=== PATIENT | female | born 1970 | race Caucasian/White ===

== ENCOUNTER 2016-09-15 19:04 | Emergency (ER) | payer OTHER ==
--- NOTE | 2016-09-15 20:06 | ED ORDER SUMMARY ---
..... Patient: BETSY BRANDT OrderSheet [facility] VisitID: [id number] [address] [place] [address] 46y, F Registration Date/Time: 09/15/2016 ORDER SHEET Weight: 65.7 kg (stated) Allergies: Remicade GENERAL ORDERS: Culture, Strep Screen Urgent (19:37 09/15/2016 Christin Ceron.NAb per protocol) ([facility] 19:41 Martin) (19:47 Christin Ceron.Angela) MEDICATION ORDERS: IV FLUIDS: ORDER SHEET NOTES: [Electronically signed by Farhan Eden R.N. (20:22 09/15/2016)] [Electronically signed by Kathleen Slater (21:44 09/15/2016)] [Electronically locked/signed by Farhan Eden R.N. (20:22 09/15/2016)]
--- NOTE | 2016-09-15 20:06 | ED ORDER SUMMARY ---
..... Patient: BETSY BRANDT OrderSheet [facility] VisitID: [id number] [address] [place] [address] 46y, F Registration Date/Time: 09/15/2016 ORDER SHEET Weight: 65.7 kg (stated) Allergies: Remicade GENERAL ORDERS: Culture, Strep Screen Urgent (19:37 09/15/2016 Christin Ceron.NAb per protocol) ([facility] 19:41 Martin) (19:47 Christin Ceron.Angela) MEDICATION ORDERS: IV FLUIDS: ORDER SHEET NOTES: [Electronically signed by Farhan Eden R.N. (20:22 09/15/2016)] [Electronically signed by Kathleen Slater (21:44 09/15/2016)] [Electronically locked/signed by Farhan Eden R.N. (20:22 09/15/2016)]
--- NOTE | 2016-09-15 20:06 | ED CLINICAL REPORT ---
Clinical Report - Physicians/Mid Levels [facility] [address] [place] [address] 09/15/2016 19:05 Patient: BETSY BRANDT Time Seen: 19:30; initial patient contact, initial documentation, patient care assumed. Arrived- By private vehicle. Historian- patient. HISTORY OF PRESENT ILLNESS Chief Complaint: SORE THROAT. This started about 1 1/2 weeks ago and is still present. Pain described as moderate. The patient has had a sore throat. No mouth sores, nasal discharge or congestion, ear pain or toothache. (son had strep). Similar symptoms previously: None. Recent medical care: Not recently seen/assessed. REVIEW OF SYSTEMS The patient has had a subjective fever with chills and sweating. No cough, difficulty breathing or chest pain. All systems otherwise negative, except as recorded above. PAST HISTORY See nurses notes. PROBLEMS: Viral Disease. Myalgias. Radius Fracture. Ankylosing Spondylitis. Gastroenteritis. Crohn's Disease. Fibromyalgia. --19:32 Farhan Eden RAbN. ADDITIONAL SURGERIES: 20 inch of large intestine removed in 1985. Appendectomy. Breast reduction. Cholecystectomy. Tonsillectomy. --19:32 Farhan Eden R.N. SOCIAL HISTORY Heavy tobacco smoker. History of heavy drug use: marijuana. No alcohol use. No recent travel. Is a local resident. FAMILY HISTORY Negative. ADDITIONAL NOTES The nursing notes have been reviewed with agreement regarding the chief complaint, HPI, ROS, PMH and patient medications and allergies. PHYSICAL EXAM Vital Signs: 09/15/2016 19:28 BP: 133/82. HR: 92. RR: 12. O2 saturation: 96%. Temp: 98.2 F. Pain level now: 8/10. Have been reviewed as normal and appear to be correct. Appearance: Alert. No acute distress. Head: Normal external inspection. Eyes: Pupils equal, round and reactive to light. Conjunctivae and eyelids normal. ENT: Ears normal. Nose normal. Pharynx abnormal. Mild generalized pharyngeal erythema. No pharyngeal vesicles or ulcerations. No right tonsillar exudate, right tonsillar swelling, left tonsillar exudate, left tonsillar abscess, left tonsillar swelling or left peritonsillitis. Lips normal. Gums normal. No trismus present. Uvula midline. Neck: Lymphadenopathy. Normal inspection. Mild right anterior neck and mild left anterior neck lymphadenopathy present. Trachea midline. Thyroid normal. Neck supple. Respiratory: No respiratory distress. Skin: Normal skin color. No rash. Normal skin turgor. Extremities: Extremities exhibit normal ROM. Extremities nontender. Neuro: Oriented X 3. No motor deficit. No sensory deficit. PROGRESS AND PROCEDURES Course of Care: 19:42 09/15/16. pt has ashely for narcs, methadone and ativan, last rx 09/02, see report for full details. Patient counseled in person regarding the patient's stable condition and diagnosis. Differential Diagnosis: Other possible considerations: pharyngitis, herpes, mono. Above considerations are based on history and physical exam. Differential diagnosis was discussed with patient. Disposition: Discharged home in good and unchanged condition (20:06). Condition: good and stable. CLINICAL IMPRESSION Acute streptococcal pharyngitis INSTRUCTIONS Warnings: GENERAL WARNINGS: Return or contact your physician immediately if your condition worsens or changes unexpectedly, if not improving as expected, or if other problems arise. Specifically return if problem worsens. Prescription Medications: Amoxicillin 500 mg tablets: Take 1 orally every 8 hours for 10 days. Dispense thirty (30). No refills. Follow-up: Follow up with your doctor in about five days even if well. Call for an appointment. Summary of care provided to patient. Understanding of the discharge instructions verbalized by patient. (Electronically signed by Kathleen Slater A.R.N.P. 09/15/2016 21:44)
--- NOTE | 2016-09-15 20:06 | ED NURSING NOTES ---
Clinical Report - Nurses [facility] [address] [place] [address] 09/15/2016 19:05 Patient: BETSY BRANDT TRIAGE Triage time 19:28. Acuity: LEVEL 4. Chief Complaint: SORE THROAT and CHILLS and SWEATS (RICHARDSON). 19:33. Alert. --19:33 Farhan Eden R.N. 19:28 09/15/16. BP: 133/82. HR: 92. RR: 12. O2 saturation: 96% on room air. Temp: 98.2 F (oral). Pain level now: 01/24. --19:33 Farhan Eden R.N. Weight: 65.7 kg stated. Height/Length: 63 inches Per Patient. BMI: 25.7. --19:32 Farhan Eden R.N. Medications TraZODone HCl Oral 50 mg, daily. --19:30 Farhan Eden R.N. OPAL, every other week. Methadone HCl Oral (Tablet 10 mg) 1 tablet, daily. --19:31 Farhan Eden R.N. AzaTHIOprine Oral (pt unsure of dose ). Gabapentin Oral 600, daily. --19:31 Farhan Eden R.N. Allergies Remicade. --19:30 Farhan Eden R.N. History Arrived by private vehicle. Historian: patient. Accompanied by family. Primary physician (Calderon). Onset. (1 1/2 weeks ago). Treatment FINE WIRE DRAWER: None. PAST MEDICAL HX: Immunizations: up-to-date. SOCIAL HX: Current every day heavy tobacco smoker- less than 1 pack per day. History of drug use: marijuana. (daily). No alcohol use. No infectious disease exposure. ABUSE ASSESSMENT: No report of abuse. FALL RISK ASSESSMENT: Fall risk assessment completed. No fall risk identified. NUTRITIONAL RISK ASSESSMENT: The nutritional risk assessment revealed no deficiencies. FUNCTIONAL ASSESSMENT: Functional assessment: no impairments noted. LEARNING NEEDS ASSESSMENT: The learning needs assessment revealed no barriers. SKIN INTEGRITY ASSESSMENT: Skin integrity risk assessment completed. No skin integrity risk identified. --19:33 Farhan Eden R.N. PROBLEMS: Viral Disease. Myalgias. Radius Fracture. Ankylosing Spondylitis. Gastroenteritis. Crohn's Disease. Fibromyalgia. --19:32 Farhan Eden R.N. ADDITIONAL SURGERIES: 20 inch of large intestine removed in 1985. Appendectomy. Breast reduction. Cholecystectomy. Tonsillectomy. --19:32 Farhan Eden R.N. Interventions ID band on patient. To treatment room. --19:33 Farhan Eden R.N. PHYSICAL ASSESSMENT 19:33. Ambulatory to room. GENERAL / NEURO / PSYCH: Alert. Oriented X 4. HEENT: Voice within normal limits. Mucous membranes are pink. RESPIRATORY: Respirations not labored. SKIN: Skin is warm and dry. Normal skin turgor. --19:33 Farhan Eden R.N. NURSING PROGRESS NOTES 19:33. Head of bed elevated. Two patient identifiers checked. Call light placed in reach. Bed placed in lowest position. Brakes of bed on. Patient ready for evaluation- chart flagged. --19:33 Farhan Eden R.N. 19:36. Patient ID band checked for patient name and birthdate: patient confirmed. Throat swab obtained for rapid strep; labeled in the presence of the patient and sent to lab. --19:36 Farhan Eden R.N. 19:59 Lab called and reported result of rapid strep, Positive for Strep A. --20:00 Farhan Eden R.N. 20:18. The patient is calm and resting quietly. GENERAL / NEURO / PSYCH: Alert. Oriented X 4. RESPIRATORY: No respiratory distress. SKIN: Skin is warm and dry. --20:22 Farhan Eden R.N. DISPOSITION / DISCHARGE Departure time: 20:22. Condition at departure: stable. No learning barriers present. Discharge instructions provided and reviewed with the patient. Reviewed medication(s) side effects, precautions, dosing and course information. Prescription(s) given to the patient. Patient verbalized understanding. Written instructions provided in Peruvian. The patient was discharged home and accompanied by family. She left the Emergency Department ambulatory and via private vehicle. Family member driving. FALL RISK ASSESSMENT: Fall risk assessment completed. No fall risk identified. --20:22 Farhan Eden R.N. 20:18 09/15/16. BP: 121/80. HR: 70. RR: 15. O2 saturation: 98%. Pain level now: 12/24. --20:22 Farhan Eden R.N. Locked/Released at 09/15/2016 20:22 by Farhan Eden R.N.
--- NOTE | 2016-09-15 20:06 | ED NURSING NOTES ---
Clinical Report - Nurses [facility] [address] [place] [address] 09/15/2016 19:05 Patient: BETSY BRANDT TRIAGE Triage time 19:28. Acuity: LEVEL 4. Chief Complaint: SORE THROAT and CHILLS and SWEATS (RICHARDSON). 19:33. Alert. --19:33 Farhan Eden R.N. 19:28 09/15/16. BP: 133/82. HR: 92. RR: 12. O2 saturation: 96% on room air. Temp: 98.2 F (oral). Pain level now: 01/24. --19:33 Farhan Eden R.N. Weight: 65.7 kg stated. Height/Length: 63 inches Per Patient. BMI: 25.7. --19:32 Farhan Eden R.N. Medications TraZODone HCl Oral 50 mg, daily. --19:30 Farhan Eden R.N. OPAL, every other week. Methadone HCl Oral (Tablet 10 mg) 1 tablet, daily. --19:31 Farhan Eden R.N. AzaTHIOprine Oral (pt unsure of dose ). Gabapentin Oral 600, daily. --19:31 Farhan Eden R.N. Allergies Remicade. --19:30 Farhan Eden R.N. History Arrived by private vehicle. Historian: patient. Accompanied by family. Primary physician (Calderon). Onset. (1 1/2 weeks ago). Treatment YARN TWISTER: None. PAST MEDICAL HX: Immunizations: up-to-date. SOCIAL HX: Current every day heavy tobacco smoker- less than 1 pack per day. History of drug use: marijuana. (daily). No alcohol use. No infectious disease exposure. ABUSE ASSESSMENT: No report of abuse. FALL RISK ASSESSMENT: Fall risk assessment completed. No fall risk identified. NUTRITIONAL RISK ASSESSMENT: The nutritional risk assessment revealed no deficiencies. FUNCTIONAL ASSESSMENT: Functional assessment: no impairments noted. LEARNING NEEDS ASSESSMENT: The learning needs assessment revealed no barriers. SKIN INTEGRITY ASSESSMENT: Skin integrity risk assessment completed. No skin integrity risk identified. --19:33 Farhan Eden R.N. PROBLEMS: Viral Disease. Myalgias. Radius Fracture. Ankylosing Spondylitis. Gastroenteritis. Crohn's Disease. Fibromyalgia. --19:32 Farhan Eden R.N. ADDITIONAL SURGERIES: 20 inch of large intestine removed in 1985. Appendectomy. Breast reduction. Cholecystectomy. Tonsillectomy. --19:32 Farhan Eden R.N. Interventions ID band on patient. To treatment room. --19:33 Farhan Eden R.N. PHYSICAL ASSESSMENT 19:33. Ambulatory to room. GENERAL / NEURO / PSYCH: Alert. Oriented X 4. HEENT: Voice within normal limits. Mucous membranes are pink. RESPIRATORY: Respirations not labored. SKIN: Skin is warm and dry. Normal skin turgor. --19:33 Farhan Eden R.N. NURSING PROGRESS NOTES 19:33. Head of bed elevated. Two patient identifiers checked. Call light placed in reach. Bed placed in lowest position. Brakes of bed on. Patient ready for evaluation- chart flagged. --19:33 Farhan Eden R.N. 19:36. Patient ID band checked for patient name and birthdate: patient confirmed. Throat swab obtained for rapid strep; labeled in the presence of the patient and sent to lab. --19:36 Farhan Eden R.N. 19:59 Lab called and reported result of rapid strep, Positive for Strep A. --20:00 Farhan Eden R.N. 20:18. The patient is calm and resting quietly. GENERAL / NEURO / PSYCH: Alert. Oriented X 4. RESPIRATORY: No respiratory distress. SKIN: Skin is warm and dry. --20:22 Farhan Eden R.N. DISPOSITION / DISCHARGE Departure time: 20:22. Condition at departure: stable. No learning barriers present. Discharge instructions provided and reviewed with the patient. Reviewed medication(s) side effects, precautions, dosing and course information. Prescription(s) given to the patient. Patient verbalized understanding. Written instructions provided in Latvian. The patient was discharged home and accompanied by family. She left the Emergency Department ambulatory and via private vehicle. Family member driving. FALL RISK ASSESSMENT: Fall risk assessment completed. No fall risk identified. --20:22 Farhan Eden R.N. 20:18 09/15/16. BP: 121/80. HR: 70. RR: 15. O2 saturation: 98%. Pain level now: 12/24. --20:22 Farhan Eden R.N. Locked/Released at 09/15/2016 20:22 by Farhan Eden R.N.
--- NOTE | 2016-09-15 21:44 | ED MED RECONCILIATION SUMMARY ---
Patient: BETSY BRANDT Medication Reconciliation Report [facility] VisitID: [id number] [address] [place] [address] 46y, F Registration Date/Time: 09/15/2016 Weight: 65.7 kg Height/Length: 63 in. BMI: 25.7 ALLERGIES: Remicade The patient's Home Medications are listed below: THE FOLLOWING MEDICATIONS NEED TO BE RECONCILED: AzaTHIOprine Oral, pt unsure of dose Gabapentin Oral 600, daily OPAL, every other week Methadone HCl Oral (10 mg) 1 tablet, daily TraZODone HCl Oral 50 mg, daily The source(s) of the original Home Medication information: Not obtained. The following Medications were given to the patient in the Emergency Department: None. The following Medications were prescribed to the patient: Amoxicillin 500 mg tablets: Take 1 orally every 8 hours for 10 days. Dispense thirty (30). No refills. -- Kathleen Slater A.R.N.P.
--- NOTE | 2016-09-15 21:44 | ED MAR SUMMARY ---
..... Medication Administration Record [facility] [address], [place] [id number] Patient: BETSY BRANDT Visit ID: [id number] 46y, F Weight: 65.7 kg Height/Length: 63 in BMI: 25.7 ALLERGIES: Remicade
--- NOTE | 2016-09-15 21:44 | ED DISCHARGE INSTRUCTIONS ---
Patient: BETSY BRANDT General Instructions [facility] VisitID: [id number] [place] [address] 46y, F Registration Date/Time: 09/15/2016 Acute streptococcal pharyngitis INSTRUCTIONS Warnings: GENERAL WARNINGS: Return or contact your physician immediately if your condition worsens or changes unexpectedly, if not improving as expected, or if other problems arise. Specifically return if problem worsens. Prescription Medications: Amoxicillin 500 mg tablets: Take 1 orally every 8 hours for 10 days. Dispense thirty (30). No refills. Follow-up: Follow up with your doctor in about five days even if well. Call for an appointment. Summary of care provided to patient. Understanding of the discharge instructions verbalized by patient. ADDITIONAL INFORMATION Pharyngitis: Strep [Presumed] Your illness has the signs of a strep throat infection. Strep throat is a contagious illness. It is spread by coughing, kissing or by touching others after touching your mouth or nose. Symptoms include throat pain worse with swallowing, aching all over, headache and fever. You will be treated with an antibiotic, which should make you start to feel better within 1-2 days. Home Care: Rest at home and drink plenty of fluids to avoid dehydration. No school or work for the first two days on antibiotics. You will not be contagious after this time, and if you are feeling better, you can return to school or work. Take your antibiotics for a full 10 days, even if you feel better after the first few days of treatment. This is very important to prevent complications from the strep infection (such as heart or kidney disease). Children: Use acetaminophen (Tylenol) for fever, fussiness or discomfort. In infants over six months of age, you may use ibuprofen (Children's Motrin) instead of Tylenol. [NOTE: If your child has chronic liver or kidney disease or ever had a stomach ulcer or GI bleeding, talk with your doctor before using these medicines.] (Aspirin should never be used in anyone under 18 years of age who is ill with a fever. It may cause severe liver damage.) Adults: You may use acetaminophen (Tylenol) or ibuprofen (Motrin, Advil) to control pain or fever, unless another medicine was prescribed for this. [NOTE: If you have chronic liver or kidney disease or ever had a stomach ulcer or GI bleeding, talk with your doctor before using these medicines.] Throat lozenges or sprays (Chloraseptic and others) will reduce pain. Gargling with warm salt water will also reduce throat pain. Dissolve 1/2 teaspoon of salt in 1 glass of warm water. This is especially useful just before meals. Follow Up with your doctor or as directed by our staff if you are not improving over the next week. Get Prompt Medical Attention if any of the following occur: Fever over 100.5F (38.0C) oral, or over 101.5F (38.6C) rectal for more than three days New or worsening ear pain, sinus pain or headache Painful lumps in the back of your neck Unable to swallow liquids or open your mouth wide due to throat pain Trouble breathing or noisy breathing Muffled voice New rash Amoxicillin Trihydrate Oral tablet What is this medicine? AMOXICILLIN (a mox i VY in) is a penicillin antibiotic. It is used to treat certain kinds of bacterial infections. It will not work for colds, flu, or other viral infections. How should I use this medicine? Take this medicine by mouth with a glass of water. Follow the directions on your prescription label. You may take this medicine with food or on an empty stomach. Take your medicine at regular intervals. Do not take your medicine more often than directed. Take all of your medicine as directed even if you think your are better. Do not skip doses or stop your medicine early. Talk to your digital marketing manager regarding the use of this medicine in children. While this drug may be prescribed for selected conditions, precautions do apply. What side effects may I notice from receiving this medicine? Side effects that you should report to your doctor or health inspector health care facilities as soon as possible: allergic reactions like skin rash, itching or hives, swelling of the face, lips, or tongue breathing problems dark urine redness, blistering, peeling or loosening of the skin, including inside the mouth seizures severe or watery diarrhea trouble passing urine or change in the amount of urine unusual bleeding or bruising unusually weak or tired yellowing of the eyes or skin Side effects that usually do not require medical attention (report to your doctor or health inspector health care facilities if they continue or are bothersome): dizziness headache stomach upset trouble sleeping What may interact with this medicine? amiloride control pills chloramphenicol macrolides probenecid sulfonamides tetracyclines What if I miss a dose? If you miss a dose, take it as soon as you can. If it is almost time for your next dose, take only that dose. Do not take double or extra doses. Where should I keep my medicine? Keep out of the reach of children. Store between 68 and 77 degrees F (20 and 25 degrees C). Keep bottle closed tightly. Throw away any unused medicine after the expiration date. What should I tell my health care provider before I take this medicine? They need to know if you have any of these conditions: asthma kidney disease an unusual or allergic reaction to amoxicillin, other penicillins, cephalosporin antibiotics, other medicines, foods, dyes, or preservatives or trying to get breast-feeding What should I watch for while using this medicine? Tell your doctor or health inspector health care facilities if your symptoms do not improve in 2 or 3 days. Take all of the doses of your medicine as directed. Do not skip doses or stop your medicine early. If you are diabetic, you may get a false positive result for sugar in your urine with certain brands of urine tests. Check with your doctor. Do not treat diarrhea with [id number] products. Contact your doctor if you have diarrhea that lasts more than 2 days or if the diarrhea is severe and watery. You have been given the following additional information: Pharyngitis, Strep (Presumed) Amoxicillin Trihydrate Oral tablet (Electronically signed by Kathleen Slater A.R.N.P. 09/15/2016 21:44)
--- NOTE | 2016-09-15 21:44 | ED MAR SUMMARY ---
..... Medication Administration Record [facility] [address] [place], [place] [id number] Patient: BETSY BRANDT Visit ID: [id number] 46y, F Weight: 65.7 kg Height/Length: 63 in BMI: 25.7 ALLERGIES: Remicade
--- NOTE | 2016-09-15 21:44 | ED MED RECONCILIATION SUMMARY ---
Patient: BETSY BRANDT Medication Reconciliation Report [facility] VisitID: [id number] [address] [place] [address] 46y, F Registration Date/Time: 09/15/2016 Weight: 65.7 kg Height/Length: 63 in. BMI: 25.7 ALLERGIES: Remicade The patient's Home Medications are listed below: THE FOLLOWING MEDICATIONS NEED TO BE RECONCILED: AzaTHIOprine Oral, pt unsure of dose Gabapentin Oral 600, daily OPAL, every other week Methadone HCl Oral (10 mg) 1 tablet, daily TraZODone HCl Oral 50 mg, daily The source(s) of the original Home Medication information: Not obtained. The following Medications were given to the patient in the Emergency Department: None. The following Medications were prescribed to the patient: Amoxicillin 500 mg tablets: Take 1 orally every 8 hours for 10 days. Dispense thirty (30). No refills. -- Kathleen Slater A.R.N.P.
--- NOTE | 2016-09-15 21:44 | ED DISCHARGE INSTRUCTIONS ---
Patient: BETSY BRANDT General Instructions [facility] VisitID: [id number] [place] [address] 46y, F Registration Date/Time: 09/15/2016 Acute streptococcal pharyngitis INSTRUCTIONS Warnings: GENERAL WARNINGS: Return or contact your physician immediately if your condition worsens or changes unexpectedly, if not improving as expected, or if other problems arise. Specifically return if problem worsens. Prescription Medications: Amoxicillin 500 mg tablets: Take 1 orally every 8 hours for 10 days. Dispense thirty (30). No refills. Follow-up: Follow up with your doctor in about five days even if well. Call for an appointment. Summary of care provided to patient. Understanding of the discharge instructions verbalized by patient. ADDITIONAL INFORMATION Pharyngitis: Strep [Presumed] Your illness has the signs of a strep throat infection. Strep throat is a contagious illness. It is spread by coughing, kissing or by touching others after touching your mouth or nose. Symptoms include throat pain worse with swallowing, aching all over, headache and fever. You will be treated with an antibiotic, which should make you start to feel better within 1-2 days. Home Care: Rest at home and drink plenty of fluids to avoid dehydration. No school or work for the first two days on antibiotics. You will not be contagious after this time, and if you are feeling better, you can return to school or work. Take your antibiotics for a full 10 days, even if you feel better after the first few days of treatment. This is very important to prevent complications from the strep infection (such as heart or kidney disease). Children: Use acetaminophen (Tylenol) for fever, fussiness or discomfort. In infants over six months of age, you may use ibuprofen (Children's Motrin) instead of Tylenol. [NOTE: If your child has chronic liver or kidney disease or ever had a stomach ulcer or GI bleeding, talk with your doctor before using these medicines.] (Aspirin should never be used in anyone under 18 years of age who is ill with a fever. It may cause severe liver damage.) Adults: You may use acetaminophen (Tylenol) or ibuprofen (Motrin, Advil) to control pain or fever, unless another medicine was prescribed for this. [NOTE: If you have chronic liver or kidney disease or ever had a stomach ulcer or GI bleeding, talk with your doctor before using these medicines.] Throat lozenges or sprays (Chloraseptic and others) will reduce pain. Gargling with warm salt water will also reduce throat pain. Dissolve 1/2 teaspoon of salt in 1 glass of warm water. This is especially useful just before meals. Follow Up with your doctor or as directed by our staff if you are not improving over the next week. Get Prompt Medical Attention if any of the following occur: Fever over 100.5F (38.0C) oral, or over 101.5F (38.6C) rectal for more than three days New or worsening ear pain, sinus pain or headache Painful lumps in the back of your neck Unable to swallow liquids or open your mouth wide due to throat pain Trouble breathing or noisy breathing Muffled voice New rash Amoxicillin Trihydrate Oral tablet What is this medicine? AMOXICILLIN (a mox i VY in) is a penicillin antibiotic. It is used to treat certain kinds of bacterial infections. It will not work for colds, flu, or other viral infections. How should I use this medicine? Take this medicine by mouth with a glass of water. Follow the directions on your prescription label. You may take this medicine with food or on an empty stomach. Take your medicine at regular intervals. Do not take your medicine more often than directed. Take all of your medicine as directed even if you think your are better. Do not skip doses or stop your medicine early. Talk to your private banker regarding the use of this medicine in children. While this drug may be prescribed for selected conditions, precautions do apply. What side effects may I notice from receiving this medicine? Side effects that you should report to your doctor or health home care music therapist as soon as possible: allergic reactions like skin rash, itching or hives, swelling of the face, lips, or tongue breathing problems dark urine redness, blistering, peeling or loosening of the skin, including inside the mouth seizures severe or watery diarrhea trouble passing urine or change in the amount of urine unusual bleeding or bruising unusually weak or tired yellowing of the eyes or skin Side effects that usually do not require medical attention (report to your doctor or health home care music therapist if they continue or are bothersome): dizziness headache stomach upset trouble sleeping What may interact with this medicine? amiloride control pills chloramphenicol macrolides probenecid sulfonamides tetracyclines What if I miss a dose? If you miss a dose, take it as soon as you can. If it is almost time for your next dose, take only that dose. Do not take double or extra doses. Where should I keep my medicine? Keep out of the reach of children. Store between 68 and 77 degrees F (20 and 25 degrees C). Keep bottle closed tightly. Throw away any unused medicine after the expiration date. What should I tell my health care provider before I take this medicine? They need to know if you have any of these conditions: asthma kidney disease an unusual or allergic reaction to amoxicillin, other penicillins, cephalosporin antibiotics, other medicines, foods, dyes, or preservatives or trying to get breast-feeding What should I watch for while using this medicine? Tell your doctor or health home care music therapist if your symptoms do not improve in 2 or 3 days. Take all of the doses of your medicine as directed. Do not skip doses or stop your medicine early. If you are diabetic, you may get a false positive result for sugar in your urine with certain brands of urine tests. Check with your doctor. Do not treat diarrhea with [id number] products. Contact your doctor if you have diarrhea that lasts more than 2 days or if the diarrhea is severe and watery. You have been given the following additional information: Pharyngitis, Strep (Presumed) Amoxicillin Trihydrate Oral tablet (Electronically signed by Kathleen Slater A.R.N.P. 09/15/2016 21:44)
== END 2016-09-15 20:22 | disposition home or self-care (01) ==
LOC: ED SRH 19:04
DX: J02.0 Streptococcal pharyngitis (principal); F17.210 Nicotine dependence, cigarettes, uncomplicated; Z88.8 Allergy status to other drugs, medicaments and biological substances
CPT/HCPCS: 90154